=== PATIENT | female | born 1950 | race Caucasian/White ===

== ENCOUNTER 2017-01-10 06:44 | Inpatient (IN) | payer OTHER, MEDICAID ==
[2017-01-08 12:46] LABS: % IMMATURE GRANULYOCYTES 0.4 % (0.0-1.1); ABSOLUTE IMMATURE GRANULOCYTES 0.04 10^3/uL (0.00-0.10); ADD DIFF? NO; ADD MORPH? NO; ADD SCAN? NO; ATYPICAL LYMPHOCYTE FLAG 10 (0-99); FRAGMENT RBC FLAG 20 (0-99); HEMOGLOBIN 10.5 g/dL (12.6-16.3); LEFT SHIFT FLG 0 (0-99); LIPEMIA HEMOLYSIS FLAG 80 (0-99); MEAN CELL HEMOGLOBIN 22.3 pg (27.9-34.1); MEAN CELL VOLUME 74.3 fL (81.5-99.8); MEAN PLATELET VOLUME 9.8 fL (8.7-11.7); PLATELET CLUMPS FLAG 0 (0-99); PLATELET COUNT 376 10^3/uL (150-400); RED BLOOD CELL COUNT 4.71 10^6/uL (4.18-5.33)
[~2017-01-10 06:44] MED LIST: CHLORHEXIDINE GLUC HIBICLENS 118 ML BTL TP ONE
[2017-01-10] MEDS ORDERED: CEFAZOLIN 2 GM/DEXTROSE/100 ML BAG IV ONE (07:05)
[2017-01-10] MEDS ORDERED: LIDOCAINE 1% 5 ML SDV ID PRN (07:13)
[2017-01-10] MEDS ORDERED: LR 1,000 ML IV ONE (07:13)
[2017-01-10] MEDS ORDERED: BUPIVACAINE/EPI 0.25% 30 ML SDV ONE (07:51)
[2017-01-10] MEDS ORDERED: THROMBIN (BOVINE) 5,000 UNIT VIAL TP ONE (07:51)
[2017-01-10] MEDS ORDERED: BACITRACIN 50,000 UNITS/10 ML SYR IRR ONE (07:51)
[2017-01-10] MEDS ORDERED: ceFAZolin 2 GM/DEXTROSE 100 ML IV ONE (08:00)
[2017-01-10] MEDS ORDERED: MIDAZOLAM 2 MG/2 ML VIAL ONE ×2 (08:00→08:15)
[2017-01-10] MEDS ORDERED: PROPOFOL/EMULSION 500 MG/50 ML BOTTLE IV ONE ×2 (08:16)
[2017-01-10] MEDS ORDERED: fentaNYL 250 MCG/5 ML INJ ONE (08:16)
[2017-01-10] MEDS ORDERED: LIDOCAINE 2% 5 ML SDV ONE (09:04)
[2017-01-10] MEDS ORDERED: ROCURONIUM 50 MG/5 ML VIAL ONE (09:04)
[2017-01-10] MEDS ORDERED: fentaNYL 100 MCG/2 ML INJ ONE ×3 (09:04→11:17)
[2017-01-10] MEDS ORDERED: DEXAMETHASONE 4 MG/ML VIAL ONE ×3 (09:05)
[2017-01-10] MEDS ORDERED: SUCCINYLCHOLINE CHLORIDE*ANESTHESIA ONLY*200 MG/10 ML SYR IVP ONE (09:06)
[2017-01-10] MEDS ORDERED: ONDANSETRON 4 MG/2 ML VIAL ONE ×2 (10:26→10:27)
[2017-01-10] MEDS ORDERED: PETROLAT,WHT/MIN OIL/SOD CHL 3.5 GM OPHT.OINT ONE (10:26)
[2017-01-10] MEDS ORDERED: PSYLLIUM HUSK 0.4 GM PO PRN (10:33)
[2017-01-10] MEDS ORDERED: CLONAZEPAM 1 MG PO PRN (10:33)
[2017-01-10] MEDS ORDERED: CYCLOBENZAPRINE 10 MG TAB PO PRN (10:33)
[2017-01-10] MEDS ORDERED: LACTULOSE 20 GM/30 ML UDCUP PO PRN (10:35)
[2017-01-10] MEDS ORDERED: BISACODYL 10 MG SUPP PR PRN (10:35)
[2017-01-10] MEDS ORDERED: diphenhydrAMINE 25 MG CAP PO PRN (10:35)
[2017-01-10] MEDS ORDERED: ONDANSETRON DISINTEGRATING 4 MG TAB PO PRN (10:35)
[2017-01-10] MEDS ORDERED: ONDANSETRON 4 MG/2 ML VIAL IVP PRN (10:35)
[2017-01-10] MEDS ORDERED: ACETAMINOPHEN 325 MG TAB PO PRN (10:35)
[2017-01-10] MEDS ORDERED: MAGNESIUM HYDROXIDE 30 ML UDCUP PO PRN (10:35)
[2017-01-10] MEDS ORDERED: DIAZEPAM 10 MG/2 ML SYR IVP PRN (10:35)
--- NOTE | 2017-01-10 10:40 | SOAPPROG ---
[facility] Progress Note Assessment/Plan: Assessment: 66 yo F sp C3-5 ACDF Plan: stable hard collar at all times PT/OT x-rays this afternoon please call with neuro changes 01/10/17 10:39 Subjective: + neck pain, no arm pain Objective: Laboratory Results 01/08/17 12:24 somnolent PERRL, no facial droop CASS x 4 + light touch ICD10 Worksheet Patient Problems: Problems Problem Status Onset Fusion of spine of cervical region Acute - ICD10 Problem Qualifiers (1) Fusion of spine of cervical region
[2017-01-10] MEDS ORDERED: clonazePAM 1 MG TAB PO PRN (10:44)
[2017-01-10] MEDS ORDERED: PSYLLIUM METAMUCIL 1 PKT PO PRN (10:45)
--- NOTE | 2017-01-10 11:05 | GOP ---
[f rep st] OPERATIVE REPORT DATE OF OPERATION: 01/10/2017 SURGEON: Oskar Gutierrez MD RATE SETTER: SAYDA Moon ANESTHESIA: General endotracheal. PREOPERATIVE DIAGNOSIS: 1. Severe multilevel cervical spondylitic myelopathy. 2. Multilevel cervical disk herniations. 3. Severe cervical stenosis with spinal cord compression. 4. High risk surgical candidate given age, comorbidities, and required surgical intervention. POSTOPERATIVE DIAGNOSIS: 1. Severe multilevel cervical spondylitic myelopathy. 2. Multilevel cervical disk herniations. 3. Severe cervical stenosis with spinal cord compression. 4. High risk surgical candidate given age, comorbidities, and required surgical intervention. PROCEDURE PERFORMED: 1. Mini open exposure for complete C3-4 and C4-5 anterior cervical diskectomy and partial C4 vertebral corpectomy for decompression of spinal canal. 2. Placement of C3-4 and C4-5 structural PEEK interbody spacers with local autograft and demineralized bone matrix. 3. Placement of a 45 mm CastleLoc-P LnK anterior cervical plate with self- drilling screws. 4. Use of intraoperative microscopy and fluoroscopy. 5. Dysphagia study patient for Marcaine versus saline. FINDINGS: ESTIMATED BLOOD LOSS: 75 cc. INDICATIONS: The patient is a 66-year-old woman with quite a few comorbidities , who has multilevel cervical spondylosis and spinal stenosis with spinal cord compression and progressive myelopathic symptoms, who presents for surgical decompression and stabilization through a mini open approach. DESCRIPTION OF PROCEDURE: After informed consent was obtained, the patient was taken to the operating room and placed in the supine position with the head in the halter retractor system. The anterior cervical region was prepped and draped in sterile fashion. After fluoroscopic localization of the correct level , the subcutaneous and intramuscular tissues were infiltrated with local anesthesia. A horizontal incision was then created at the level of the C4 vertebral body. This was carried through the platysmal layer using the monopolar electrocautery and carried in the avascular plane between the sternocleidomastoid and carotid sheath laterally and the strap muscles, trachea , and esophagus medially down to the prevertebral fascia, which was carefully incised with Metzenbaum scissors. The C3-4 and C4-5 interspaces were identified and re-verified using intraoperative fluoroscopy. The large osteophytes were carefully removed and harvested for local autograft. The Girard distraction pins were carefully inserted at C3, C4, and C5, and serial distraction created across the interspaces, first at C3-4 then at C4-5, during which time the complete diskectomy was performed at each level with preparation of the endplates and removal of the posterior longitudinal ligament. Bilateral foraminotomies were performed. There was quite a bit of drilling required at each endplate, especially at the superior and inferior endplates of C4 from each side for approximately 50% of the vertebral body removal, for a partial C4 vertebral corpectomy in order to adequately decompress the spinal canal. Following adequate decompression, the remaining endplates were carefully prepared and the wound was copiously irrigated with antibiotic irrigation, and meticulous hemostasis was achieved in the epidural space. Two structural PEEK interbody spacers packed with local autograft from the partial corpectomy and osteophytes along with demineralized bone matrix were placed in the C3-4 and C4- 5 interspaces under fluoroscopic image guidance. The distraction was removed and an appropriately sized 45 mm CastleLoc-P LnK anterior cervical plate was then placed and secured with 14 mm self-drilling screws. After re-verification of good position of the plate screws and interbody spacers using biplanar fluoroscopy, the locking mechanisms were engaged. A drain was placed. The subcutaneous and intramuscular tissues were infiltrated with the study drug and the wound was closed in a layered fashion using interrupted Vicryl sutures, followed by Steri-Strips on the skin. COMPLICATIONS: None. DISPOSITION: The patient is currently in the process of being repositioned for extubation. /[id number]/MODL MTDD
[2017-01-10] MEDS ORDERED: DIAZEPAM 10 MG/2 ML SYR ONE (11:20)
[2017-01-10] MEDS: HYDROCODONE/APAP 10/325 TAB PO PRN ×4 (12:24→22:49)
[2017-01-10] MEDS: HYDROmorphONE/DILAUDID 1 MG/ML SYR IVP PRN ×2 (12:24→22:56)
[2017-01-10] MEDS: NS W/ 20 KCl/L 1,000 ML IV SCH ×2 (12:27→22:41)
[2017-01-10] MEDS: METHOCARBAMOL 750 MG TAB PO PRN ×2 (14:46→21:25)
[2017-01-10] MEDS: GABAPENTIN 300 MG CAP PO SCH ×2 (17:06→22:44)
[2017-01-10] MEDS: POLYETHYLENE GLYCOL 3350 17 GM PKT PO SCH ×2 (17:13→22:43)
[2017-01-10] MEDS ORDERED: FAMOTIDINE 20 MG/NACL 50 ML IV SCH (21:00)
[2017-01-10] MEDS: DULoxetine 60 MG CAP PO SCH (21:17)
[2017-01-10] MEDS: FAMOTIDINE 20 MG TAB PO SCH (21:18)
[2017-01-10] MEDS: SENNOSIDES/DOCUSATE SODIUM TAB PO SCH (21:18)
[2017-01-10] MEDS: ATENOLOL 25 MG TAB PO SCH (21:19)
[2017-01-11] MEDS: HYDROCODONE/APAP 10/325 TAB PO PRN (06:00)
[2017-01-11] MEDS: METHOCARBAMOL 750 MG TAB PO PRN ×2 (06:03→14:15)
--- NOTE | 2017-01-11 07:56 | SOAPPROG ---
SOAP Progress Note Assessment/Plan: Assessment: POD #1 sp C5-7 ACDF has some expected neck and intrascapular pain right hand numbness improved tolerated a smoothie last night Plan: Hard collar, Continue MORGAN drain PT/OT/ST cervical xrays today DC Planning 01/11/17 07:54 01/11/17 07:56 Subjective: awake, alert, mild discomfort with neck pain reports her right hand sensation is improved Objective: Vital Signs Temp Pulse Resp BP Pulse Ox 36.8 C 89 17 144/92 H 97 01/11/17 04:00 01/11/17 04:00 01/11/17 04:00 01/11/17 04:00 01/11/17 04:00 Laboratory Results 01/08/17 12:24 01/10/17 01/11/17 01/12/17 05:59 05:59 05:59 Intake Total 3400 Output Total 515 200 Balance 2885 -200 NEURO: LORD, sens +LT dressing: CDI MORGAN: 100ml ICD10 Worksheet Patient Problems: Problems Problem Status Onset Fusion of spine of cervical region Acute
[2017-01-11] MEDS ORDERED: NON-FORMULARY NEW DRUG (Omeprazole [Prilosec 20 Mg] 20 MG) PO SCH (09:00)
[2017-01-11] MEDS: FAMOTIDINE 20 MG TAB PO SCH ×2 (09:15→20:53)
[2017-01-11] MEDS: DULoxetine 60 MG CAP PO SCH ×2 (09:15→20:53)
[2017-01-11] MEDS: ATENOLOL 25 MG TAB PO SCH ×2 (09:16→20:54)
[2017-01-11] MEDS: PANTOPRAZOLE SODIUM 40 MG TAB PO SCH (09:16)
[2017-01-11] MEDS: GABAPENTIN 300 MG CAP PO SCH ×3 (09:16→22:46)
[2017-01-11] MEDS: POLYETHYLENE GLYCOL 3350 17 GM PKT PO SCH ×3 (09:25→19:26)
[2017-01-11] MEDS: SENNOSIDES/DOCUSATE SODIUM TAB PO SCH ×2 (09:25→20:53)
[2017-01-11] MEDS: OXYCODONE/APAP 5/325 TAB PO PRN ×2 (12:39→18:58)
[2017-01-11] MEDS: DIAZEPAM 5 MG TAB PO PRN (21:03)
[2017-01-11] MEDS: HYDROmorphONE/DILAUDID 1 MG/ML SYR IVP PRN (21:04)
[2017-01-12 03:07] VITALS: O2SAT 97
[2017-01-12] MEDS: OXYCODONE/APAP 5/325 TAB PO PRN ×3 (03:09→15:43)
[2017-01-12] MEDS: DULoxetine 60 MG CAP PO SCH (08:15)
[2017-01-12] MEDS: ATENOLOL 25 MG TAB PO SCH (08:15)
[2017-01-12] MEDS: GABAPENTIN 300 MG CAP PO SCH ×2 (08:16→15:43)
[2017-01-12] MEDS: FAMOTIDINE 20 MG TAB PO SCH (08:16)
[2017-01-12] MEDS: PANTOPRAZOLE SODIUM 40 MG TAB PO SCH (08:16)
[2017-01-12] MEDS: METHOCARBAMOL 750 MG TAB PO PRN (08:16)
[2017-01-12 08:20] VITALS: BP 123/82; PULSE 95
[2017-01-12] MEDS: POLYETHYLENE GLYCOL 3350 17 GM PKT PO SCH (08:20)
[2017-01-12] MEDS: SENNOSIDES/DOCUSATE SODIUM TAB PO SCH (08:23)
[2017-01-12] MEDS ORDERED: ENOXAPARIN 40 MG/0.4 ML SYR SC SCH (09:00)
--- NOTE | 2017-01-12 09:03 | NEUSURGPN ---
Assessment/Plan: POD #2 sp C5-7 ACDF has some expected neck and intrascapular pain right hand numbness improved Plan: Hard collar, Continue MORGAN drain PT/OT/ST cervical xrays with intact hardware DC Planning Subjective: hand pain improved posterior neck pain Objective: NAD A&Ox3 MAEx4 5/5 and equal in BUE and BLE - Physician Discussed Patient with : Brenda Neurosurgery Physical Exam - Vitals, I&O, Labs I and O 01/11/17 01/12/17 01/13/17 05:59 05:59 05:59 Intake Total 3400 1150 Output Total 515 1245 Balance 2885 -95 Weight 81.647 kg Intake: Oral (ml) 1100 1000 IV Intake (ml) 1000 IV Infused (ml) 1300 150 NS W/ 20 KCl/L 1,000 ml @ 1250 150 75 mls/hr IV CONT MORRIS Rx #:[id number] ceFAZolin 1 GM/DEXTROSE 50 50 ml @ 200 mls/hr IV Q8HRS MORRIS Rx#:[id number] Output: Urine (ml) 400 1200 Bedside Commode 400 Toilet 1200 Estimated Blood Loss (ml) 15 Wound Drainage (ml) 100 45 Neck Lenny Hollis 100 45 Other: Intake Quantity Yes Yes Sufficient Number of Voids Bedside Commode 1 Toilet 1 Vital Signs Temp Pulse Resp BP Pulse Ox 36.6 C 95 16 123/82 H 97 01/12/17 03:06 01/12/17 08:15 01/12/17 03:06 01/12/17 08:15 01/12/17 03:06 Laboratory Results 01/08/17 12:24 ICD10 Worksheet Patient Problems: Problems Problem Status Onset Fusion of spine of cervical region Acute
--- NOTE | 2017-01-12 09:54 | PDIAF ---
- Diagnosis Code Status: Full Code - Medication Management Discharge Medications: Medications to Continue on Transfer Atenolol [Tenormin 25 mg (*)] 12.5 mg PO BID 01/02/17 [Last Taken 01/10/17] Cyclobenzaprine [Flexeril 10 MG (*)] 10 mg PO TID PRN 01/02/17 [Last Taken 01/09] DULoxetine [Cymbalta 60 MG (*)] 60 mg PO BID 01/02/17 [Last Taken 01/10/17] Gabapentin [Neurontin 300 MG (*)] 900 mg PO TID 01/02/17 [Last Taken 01/10/17 05 :45] Omeprazole [Prilosec 20 mg] 20 mg PO DAILY 01/02/17 [Last Taken 01/10/17 05:45] Psyllium Husk [Metamucil] 0.4 gm PO DAILY PRN 01/02/17 [Last Taken Unknown] clonazePAM [Clonazepam] 1 mg PO DAILY PRN 01/02/17 [Last Taken 01/03/17] Enoxaparin [Lovenox 40 MG (*)] 40 mg SQ DAILY 01/03/17 [Last Taken 01/09/17] Fluticasone/Salmeter 250/50Mcg [Advair 250/50 (*)] 1 puffs IH BID 01/03/17 [ Last Taken 01/08/17] Methocarbamol [Robaxin 750 mg (*)] 750 mg PO QID PRN #0 tab 01/12/17 [Last Taken Unknown] Sennosides/Docusate Sodium [Senokot-S] 1 - 2 tab PO BID #0 tab 01/12/17 [Last Taken Unknown] oxyCODONE IR [Oxycodone Ir (*)] 5 - 10 mg PO Q4 #90 tab 01/12/17 [Last Taken Unknown] Discharge Medications: Refer to the Discharge Home Medication list for PRN reason. - Orders Services needed: Home Care, Certified Furniture [employer]als [employer], Physical Therapy, Occupational Therapy Home Care Face to Face: I certify that this patient was under my care and that I had the required [id number] encounter meeting the encounter requirements on the discharge day. My findings support the fact that the patient is homebound as defined in CMS Chapter 7 Medicare Benefits Manual 30.1.1, The condition of the patient is such that there exists a normal inability to leave home and consequently, leaving home would require a considerable and taxing effort. - Follow Up Care Current Providers and Referrals: THOM CORTES [Other]
[2017-01-12 11:46] VITALS: RESP 15; TEMP 98
[2017-01-12] MEDS: DIAZEPAM 5 MG TAB PO PRN (13:27)
--- NOTE | 2017-01-23 16:14 | GDS ---
[f rep st] DISCHARGE SUMMARY ADMISSION DIAGNOSES: Cervical degenerative joint disease and stenosis. DISCHARGE DIAGNOSIS: Status post C3-4, C4-5 anterior cervical diskectomy and arthrodesis. HISTORY AND PHYSICAL: Please see admission history and physical. HOSPITAL COURSE: Patient is a 66-year-old female who presented with cervical degenerative joint dis ease and stenosis. She was taken to the operating room on 01/10/2017 where she underwent a C3-4 and C4-5 anterior cervical diskectomy and fusion. There were no intraoperative complications. She was admitted to the floor for observation. On the floor, she was tolerating a regular diet, and her pa in was controlled with p.o. pain medications. She was discharged home in stable condition on 2016. Patient was discharged with cervical fusion instructions, and recommended she return for neur osurgical followup appointment in 10-14 days. /[id number]/MODL
== END 2017-01-12 15:56 | disposition home health service (06) | DRG 472 ==
LOC: F3N 06:44
PROVIDERS: ADMIT Neurological Surgery; ATTEND Neurological Surgery
DX: M48.02 Spinal stenosis, cervical region (principal); M50.01 Cervical disc disorder with myelopathy, high cervical region; M50.021 Cervical disc disorder at C4-C5 level with myelopathy
CPT/HCPCS: 97116-GP; 97161-GP; 97166-GO; 97535-GO; C1713; G8978-GP-CJ; G8979-GP-CI; G8980-GP-CJ; G8987-GO-CJ; G8988-GO-CI; J0330; J0690; J1100; J1170; J1650; J2250; J2405; J2704; J3010

== ENCOUNTER → 2017-08-02 | Outpatient (CLI) | payer OTHER, MEDICAID | LOC: FIMAGING 10:09 | PROVIDERS: ATTEND Physician Assistant Surgical | DX: Z09 Encounter for follow-up examination after completed treatment for conditions other than malignant neoplasm (principal); M89.38 Hypertrophy of bone, other site; M50.322 Other cervical disc degeneration at C5-C6 level; M50.323 Other cervical disc degeneration at C6-C7 level; Z98.1 Arthrodesis status ==